=== PATIENT | female | born 1985 | race African-American/Black ===

== ENCOUNTER 2016-06-09 10:37 | Inpatient (IN) | payer MEDICAID ==
[~2016-06-09 10:37] MED LIST: GLYCOPYRROLATE INJ 0.4 MG/2 ML VIAL ONE; NEOSTIGMINE METHYLSULFATE 10 MG/10 ML VIAL ONE; ROCURONIUM BROMIDE INJ 50 MG/5 ML VIAL IV ONE; SUCCINYLCHOLINE CHLORIDE INJ 200 MG/10 ML VIAL ONE
--- NOTE | 2016-06-09 10:45 | ER Document Report ---
ED Medical Screen (RME) - General Stated Complaint: ABDOMINAL PAIN Mode of Arrival: Medic Notes: patient complains of severe umbilical hernia pain that started about 5:00 this morning denies nausea or vomiting. States she has had this hernia since about age 12, but has had no follow-up on it. I have greeted and performed a rapid initial assessment of this patient. A comprehensive ED assessment and evaluation of the patient, analysis of test results and completion of the medical decision making process will be conducted by additional ED providers. TRAVEL OUTSIDE OF THE [place] IN LAST 30 DAYS: No - Related Data Allergies/Adverse Reactions: latex [Latex] Adverse Reaction (Verified 06/09/16 10:43) Past Medical History Pulmonary Medical History: Reports: Hx Asthma - Immunizations Hx Diphtheria, Pertussis, Tetanus Vaccination: Yes Physical Exam - Abdominal Tenderness: Tender - hernia above umbilicus tender to touch, pt pulls away when trying to reduce
[2016-06-09] MEDS ORDERED: MORPHINE SULFATE 10 MG/ML INJ IV ONE (11:03)
[2016-06-09] MEDS ORDERED: RINGERS SOLUTION,LACTATED 1,000 ML IV ONE (11:03)
[2016-06-09] MEDS ORDERED: ONDANSETRON HCL INJ/PF 4 MG/2 ML SDV IV ONE ×2 (11:04→20:00)
--- NOTE | 2016-06-09 11:08 | ER Document Report ---
ED GI/ - General Chief Complaint: Abdominal Pain Stated Complaint: ABDOMINAL PAIN Mode of Arrival: Medic Information source: Patient Notes: This is a 31-year-old female who presents with midline abdominal pain that awoke her from sleep at 0500 today. She has a history of a ventral hernia and states that this is the first time that her hernia has hurt like this. Last PO was dinner last night at about 8 PM. She reports mild nausea but no vomiting. No fevers or chills. She states she is just very uncomfortable because of the abdominal pain. TRAVEL OUTSIDE OF THE [place] IN LAST 30 DAYS: No - Related Data Allergies/Adverse Reactions: latex [Latex] Adverse Reaction (Verified 06/09/16 10:43) Past Medical History - General Information source: Patient, [facility] Records - Social History Smoking Status: Former Smoker Chew tobacco use (# tins/day): No Frequency of alcohol use: None Drug Abuse: None Family History: Reviewed & Not Pertinent Patient has suicidal ideation: No Patient has homicidal ideation: No Pulmonary Medical History: Reports: Hx Asthma Renal/ Medical History: Denies: Hx Peritoneal Dialysis Surgical Hx: Negative - Immunizations Hx Diphtheria, Pertussis, Tetanus Vaccination: Yes Hx Pneumococcal Vaccination: 01/05/14 Review of Systems - Review of Systems Notes: REVIEW OF SYSTEMS: CONSTITUTIONAL : Denies fever, chills, or sweats. Denies recent illness. EENT: Denies eye, ear, throat, or mouth pain or symptoms. Denies nasal or sinus congestion. CARDIOVASCULAR: Denies chest pain. RESPIRATORY: Denies cough, cold, or chest congestion. Denies shortness of breath, difficulty breathing, or wheezing. GASTROINTESTINAL: As per history of present illness GENITOURINARY: Denies difficulty urinating, painful urination, burning, frequency, or blood in urine. MUSCULOSKELETAL: Denies neck or back pain or joint pain or swelling. SKIN: Denies rash or skin lesions. HEMATOLOGIC : Denies easy bruising or bleeding. LYMPHATIC: Denies swollen, enlarged glands. NEUROLOGICAL: Denies altered mental status or loss of consciousness. Denies headache. PSYCHIATRIC: Denies anxiety or stress or depression. ALL OTHER SYSTEMS REVIEWED AND NEGATIVE. Physical Exam - Vital signs Vitals: Temp Pulse Resp BP Pulse Ox 98.4 F 122 H 23 H 109/76 95 06/09/16 10:41 06/09/16 10:41 06/09/16 10:41 06/09/16 10:41 06/09/16 10:41 - Notes Notes: PHYSICAL EXAMINATION: GENERAL: Well-appearing, well-nourished and appears uncomfortable secondary to pain. Pleasant and conversant. HEAD: Atraumatic, normocephalic. EYES: Pupils equal round and reactive to light, extraocular movements intact, sclera anicteric, conjunctiva are normal. ENT: nares patent, oropharynx clear without exudates. Moist mucous membranes. NECK: Normal range of motion, supple without lymphadenopathy LUNGS: Breath sounds clear to auscultation bilaterally and equal. No wheezes rales or rhonchi. HEART: Tachycardic, Regular rate and rhythm without murmurs ABDOMEN: Soft, normoactive bowel sounds. No guarding, no rebound. Palpable mass just above the umbilicus which is significantly tender to palpation. EXTREMITIES: Normal range of motion, no pitting or edema. No cyanosis. NEUROLOGICAL: Cranial nerves grossly intact. Normal speech. No gross focal motor or sensory deficits appreciated. PSYCH: Normal mood, normal affect. SKIN: Warm, Dry, normal turgor, no rashes or lesions noted. Course - Re-evaluation Re-evalutation: 06/09/16 14:24 Patient states that she has not had much improvement in her pain after the dose of morphine and then the dose of Dilaudid. Her heart rate at this time is 100. Her laboratory evaluation is reassuring and we are awaiting her CT results. She is still significantly tender to palpation and so at this time I discussed the case with the surgeon retail loss prevention specialist Dr. Berman who will evaluate the patient in the ER. 06/09/16 14:24 06/09/16 15:55 Dr. Berman to take patient to the OR for hernia repair. - Vital Signs Vital signs: Temp Pulse Resp BP Pulse Ox 98.4 F 122 H 26 H 115/60 100 06/09/16 10:41 06/09/16 10:41 06/09/16 12:01 06/09/16 12:01 06/09/16 12:01 - Laboratory Result Diagrams: 06/09/16 11:15 06/09/16 11:15 Laboratory results interpreted by me: 06/09/16 06/09/16 11:15 11:15 RBC 5.41 H MCV 79 L MCH 26.1 L RDW 14.4 H Chloride 108 H Total Bilirubin 1.4 H Discharge - Discharge Clinical Impression: Ventral hernia Qualifiers: Obstruction and gangrene presence: without obstruction or gangrene Qualified Code(s): K43.9 - Ventral hernia without obstruction or gangrene Condition: Stable Disposition: ADMITTED INPATIENT Admitting Provider: Surgicalist - Dr Berman Unit Admitted: OR
[2016-06-09] MEDS ORDERED: HYDROMORPHONE HCL INJ/PF 2 MG/ML AMPULE IV ONE ×2 (11:45→14:16)
[2016-06-09 11:50] LABS: ABSOLUTE LYMPHOCYTES (AUTO) 1.1 10^3/uL (0.5-4.7); ABSOLUTE MONOCYTES (AUTO) 0.5 10^3/uL (0.1-1.4); ABSOLUTE NEUT (AUTO) 5.5 10^3/uL (1.7-8.2); BASOPHILS % (AUTO) 0.4 % (0-2); EOSINOPHILS % (AUTO) 0.4 % (0-6); HEMATOCRIT 42.6 % (36.0-47.0); HEMOGLOBIN 14.1 g/dL (12.0-15.5); HGB HCT DIFFERENCE -0.3; LYMPHOCYTES % (AUTO) 15.5 % (13-45); MEAN CORPUSCULAR HEMOGLOBIN 26.1 pg (27.0-33.4); MEAN CORPUSCULAR HGB CONC 33.2 g/dL (32.0-36.0); MEAN CORPUSCULAR VOLUME 79 fl (80-97); MONOCYTES % (AUTO) 7.6 % (3-13); RED BLOOD COUNT 5.41 10^6/uL (3.72-5.28); RED CELL DISTRIBUTION WIDTH 14.4 % (11.5-14.0); SEGMENTED NEUTROPHILS % (AUTO) 76.1 % (42-78); WHITE BLOOD COUNT 7.2 10^3/uL (4.0-10.5)
[2016-06-09 12:13] LABS: BLOOD UREA NITROGEN 9 mg/dL (7-20); CARBON DIOXIDE 26 mmol/L (22-30); CHLORIDE 108 mmol/L (98-107); CREATININE RESULT 0.62 mg/dL (0.52-1.25); GLUCOSE 89 mg/dL (75-110); POTASSIUM 4.4 mmol/L (3.6-5.0); SODIUM 142.3 mmol/L (137-145)
[2016-06-09 12:14] LABS: ALANINE AMINOTRANSFERASE 36 U/L (9-52); ALBUMIN 3.9 g/dL (3.5-5.0); ALKALINE PHOSPHATASE 77 U/L (38-126); ANION GAP 8 (5-19); ASPARTATE AMINO TRANSFERASE 29 U/L (14-36); BILIRUBIN,TOTAL 1.4 mg/dL (0.2-1.3); LIPASE 26.5 U/L (23-300); TOTAL PROTEIN 6.8 g/dL (6.3-8.2)
--- NOTE | 2016-06-09 15:58 | HISTORY AND PHYSICAL E ---
History and Physical NAME: MIGUEL SHEPPARD : 1985 AGE: 31Y ADMITTED: 06/09/2016 ROOM: REASON FOR ADMISSION: The patient is a 31-year-old woman who presents with a chief complaint of abdominal pain. HISTORY OF PRESENT ILLNESS: The patient has since had a small defect above the umbilicus. She states that occasionally it will be uncomfortable, but over the last 24 hours a bulge has presented and it will not reduce, and she is in marked pain. She denies nausea or vomiting or fever or chills. She states this never had any relation to her bowel function. The patient denies prior surgical abdominal history. PAST MEDICAL HISTORY: Significant for asthma for which she uses albuterol and a rescue inhaler. ALLERGIES: The patient notes a LATEX ALLERGY. FAMILY/SOCIAL HISTORY: Noncontributory. The patient is here with her fiance and family members who are family by friendship. She was supposedly a [place] of the state until she was a young adult, but the folks with her here seem to be her support system. The patient works in a telemarketing status. REVIEW OF SYSTEMS: The patient denies chest pain or shortness of breath, though she does have asthma. She does not smoke. She denies any other surgical or abdominal history. She currently is menstruating. Remainder of the review of systems is discussed, and it is negative. PHYSICAL EXAMINATION: GENERAL: Presents as a pleasant young woman who is having difficulty standing up straight on her way back from the bathroom. HEAD AND NECK: Examination is grossly unremarkable for age. VITAL SIGNS: She is mildly tachycardic and afebrile. CHEST: Clear to auscultation and percussion. CARDIAC: Exam is without murmur, gallop, or rub. ABDOMEN: The abdomen is soft and nontender. There is no organomegaly, mass, rebound, guarding, or rigidity. There is no evidence of peritonitis. However, in the mid abdominal region just above the umbilicus, there is a very obvious protuberance which is tender to the touch. EXTREMITIES: Peripheral examination is otherwise unremarkable. DIAGNOSTIC DATA: Database includes a CT scan of the abdomen and pelvis which reveals an incarcerated ventral abdominal wall hernia containing omental fat. There does not appear to be any bowel involvement in this hernia. IMPRESSION: A 31-year-old healthy otherwise young woman, menstruating, with significant finding of an incarcerated ventral abdominal wall hernia containing omental fat. She has marked discomfort. PLAN: The plan will be for surgical repair of this hernia. The patient and her family understand the risks and alternatives of surgical intervention and wish to proceed at this time. DICTATING PHYSICIAN: SIN WHITE M.D. [id number] PHY#: [id number] ID: [id number] JOB#: [id number] ACCT: [id number] cc:ROXANA WHITE M.D. >
[2016-06-09] MEDS ORDERED: CEFAZOLIN INJ 1 GM VIAL ONE (15:59)
[2016-06-09] MEDS ORDERED: BUPIVACAINE HCL 0.25% /EPINEPHRINE INJ/PF 30 ML SDV ONE (15:59)
[2016-06-09] MEDS ORDERED: FENTANYL CITRATE INJ/PF 250 MCG/5 ML AMPULE ONE (16:21)
[2016-06-09] MEDS ORDERED: ONDANSETRON HCL INJ/PF 4 MG/2 ML SDV ONE ×2 (16:22→18:24)
[2016-06-09] MEDS ORDERED: PROPOFOL INJ 200 MG/20 ML VIAL IV ONE (16:22)
[2016-06-09] MEDS ORDERED: MORPHINE SULFATE 10 MG/ML INJ ONE (16:22)
[2016-06-09] MEDS ORDERED: MIDAZOLAM 2 MG/2 ML INJ ONE (16:22)
[2016-06-09] MEDS ORDERED: DEXAMETHASONE SOD PHOSPHATE INJ 4 MG/1 ML VIAL ONE (16:22)
[2016-06-09] MEDS ORDERED: ALBUTEROL SULFATE HFA (90 MCG/PUFF) 200 PUFF/8.5 GM MDI IH ONE (16:35)
[2016-06-09] MEDS ORDERED: MORPHINE SULFATE 10 MG/ML INJ IV PRN (17:04)
[2016-06-09] MEDS ORDERED: PROMETHAZINE HCL INJ 25 MG/1 ML VIAL IV PRN ×2 (17:04)
[2016-06-09] MEDS ORDERED: MEPERIDINE HCL/PF INJ 25 MG/1 ML DISP.SYRIN IV PRN (17:04)
[2016-06-09] MEDS ORDERED: DIPHENHYDRAMINE HCL 50 MG/ML VIAL IV PRN (17:04)
[2016-06-09] MEDS ORDERED: FENTANYL CITRATE INJ/PF 100 MCG/2 ML AMPUL IV PRN ×3 (17:04)
--- NOTE | 2016-06-09 18:18 | OPERATIVE REPORT E ---
Operative Report NAME: MIGUEL SHEPPARD : 1985 AGE: 31Y DATE OF SURGERY: 06/09/2016 ROOM: ED15 PREOPERATIVE DIAGNOSIS: Incarcerated epigastric ventral hernia. POSTOPERATIVE DIAGNOSIS: Incarcerated epigastric ventral hernia. OPERATION: Repair of incarcerated epigastric ventral hernia. SURGEON: ROXANA WHITE M.D. ANESTHESIA: General via endotracheal tube. FINDINGS: A 3 cm hernia defect with a large amount of omentum incarcerated within. There was no evidence of ischemic tissue, and no bowel was involved within the hernia. PROCEDURE: The patient was taken to the operating room after informed consent, and after general endotracheal inhalation anesthesia, the abdomen was prepped and draped in standard fashion. Timeout was undertaken. The incision was created above and below the mass in the supraumbilical region. The incision was extended superiorly and inferiorly for adequate surgical exposure using the Bovie cautery and Weitlaner retractors. The hernia sac was localized easily. The hernia sac was opened and then inspected. There was omentum within the hernia sac which could not be reduced; however, the hernia defect was opened approximately 1.5 cm superiorly, and this allowed easy reduction of the omental tissue. After inspection, this tissue revealed no evidence of ischemic change. There was no bowel involved within the hernia defect. The hernia sac was excised with the Bovie cautery. Then using #1 Prolene sutures, the wound was closed with running #1 Prolene suture and multiple #1 Prolene sutures in a [id number] fashion. The wound edges were elevated easily at the fascia to assure no tissue was involved within the needle passes. With the abdominal wall closed, 0.25% Marcaine with epinephrine solution 30 mL was used to instill into the area of the repair. The deep tissues were approximated with 0 Vicryl interrupted sutures, and the skin was closed with logan. The patient tolerated the procedure well. Estimated blood loss less than 10 mL. Sponge and needle counts were correct, and she was taken to the recovery room in satisfactory condition after having tolerated the procedure well. DICTATING PHYSICIAN: SIN WHITE M.D. [id number] PHY#: [id number] ID: [id number] JOB#: [id number] ACCT: [id number] cc:ROXANA WHITE M.D. >
[2016-06-09] MEDS ORDERED: POTASSI CL 20 MEQ/D5-1/2NS 1L 1000 ML IV PRN (20:27)
[2016-06-09] MEDS ORDERED: OXYCODONE-ACETAMINOPHEN 5-325 MG TABLET PO PRN ×2 (20:28)
[2016-06-09] MEDS ORDERED: ALBUTEROL SULFATE 0.083% NEB 2.5 MG/3 ML AMPUL NEB PRN (20:32)
[2016-06-09] MEDS ORDERED: MAG HYDROX/AL HYDROX/SIMETH SUSP 30 ML UDCUP PO PRN (20:33)
[2016-06-09] MEDS: MORPHINE SULFATE 10 MG/ML INJ IV PRN ×2 (21:10→23:36)
[2016-06-10] MEDS: PANTOPRAZOLE SODIUM 40 MG VIAL IV SCH ×2 (01:17→10:04)
[2016-06-10] MEDS: MORPHINE SULFATE 10 MG/ML INJ IV PRN (08:13)
--- NOTE | 2016-06-10 09:46 | PDOC PROGRESS REPORT ---
Subjective Progress Note for:: 06/10/16 Subjective:: Patient has minimal complaints. She is tolerating clear liquids, is hungry. She is voiding as walked on the halls. Physical Exam Vital Signs: Temp Pulse Resp BP Pulse Ox 98.7 F 96 16 139/104 H 99 06/10/16 08:03 06/10/16 08:03 06/10/16 08:03 06/10/16 08:03 06/10/16 08:03 Intake & Output 06/09/16 06/10/16 06/11/16 06:59 06:59 06:59 Intake Total 1750 Output Total 1860 Balance -110 Weight 79.7 kg General appearance: PRESENT: no acute distress GI/Abdominal exam: PRESENT: other - Operative dressing inspected; dressing removed. Zuleyma intact. Epidermal lysis at the umbilicus. Results Impressions: Abdomen/Pelvis CT 06/09/16 12:24 IMPRESSION: Small midline ventral hernia 1 cm superior to the umbilicus, containing omental fat Assessment & Plan - Diagnosis (1) Ventral hernia Qualifiers: Obstruction and gangrene presence: without obstruction or gangrene Qualified Code(s): K43.9 - Ventral hernia without obstruction or gangrene Is this a current diagnosis for this admission?: YesPlan: 1. Patient is one day status post operative open repair, without mesh, doing well, tolerating clear liquid diet. 2. Plan for today is to advance diet, apply abdominal binder, and anticipated discharge later today.
--- NOTE | 2016-06-10 14:48 | DISCHARGE SUMMARY E ---
Discharge Summary NAME: MIGUEL SHEPPARD : 1985 AGE: 31Y ADMITTED: 06/09/2016 DISCHARGED: 06/10/2016 REASON FOR ADMISSION: Incarcerated ventral hernia. SUMMARY OF HOSPITALIZATION: The patient is a 31-year-old [place] female who presents to the emergency department complaining of abdominal pain, worse over the last 24 hours. She was found on physical examination to have evidence of abdominal tenderness and a definite protuberance above the umbilicus. CT scan showed incarcerated fat in a ventral wall hernia. She was admitted to the Surgical Service for definitive treatment. The patient was kept n.p.o. on IV fluids and taken to the operating room by Dr. Sawyer Berman where she underwent open ventral incisional hernia repair. The omentum was viable; no resection was performed; no mesh was used. The patient tolerated the procedure well. Postoperatively her diet was advanced and she tolerated this well, had adequate pain management, and by the afternoon of the first postoperative day was discharged home. FINAL DIAGNOSIS: Incarcerated ventral wall hernia, status post operative repair. PLAN: Discharge home, on diet, narcotics prescribed, and a follow-up appointment with [facility] in 1-2 weeks. Discharge instructions provided. DICTATING PHYSICIAN: EMILY ADRIAN M.D. [id number] PHY#: [id number] ID: [id number] JOB#: [id number] ACCT: [id number] cc:NO Elizabeth OAKLEY M.D. Jamaal MEYERS.N.P. >
[2016-06-10 16:06] VITALS: BP 114/60
== END 2016-06-10 16:00 | disposition home or self-care (01) | DRG 355 ==
LOC: ER 10:37 → EH 15:57 → UNDOADMIN 15:57 → 2S 18:54 → EH 18:54 → 2S 22:47
PROVIDERS: ADMIT Surgery; ATTEND Surgery
PROC: 0WQF0ZZ Repair Abdominal Wall, Open Approach (ICD-10-PCS; principal; 2016-06-09 16:30)
DX: K43.6 Other and unspecified ventral hernia with obstruction, without gangrene (principal); J45.909 Unspecified asthma, uncomplicated; Z91.040 Latex allergy status
CPT/HCPCS: 36415; 74177; 752; 80048; 80076; 83605; 83690; 84703; 85025; 94640; 96365; 96375; 96376; 99285; J0330; J0690; J1100; J1170; J2250; J2270; J2405; J2704; J3010; J3480; J3490; J7120; S0164